=== PATIENT | female | born 1975 | race Caucasian/White ===

== ENCOUNTER 2016-11-30 14:37 | Emergency (ER) | payer OTHER ==
[~2016-11-30] VITALS: Ht 170.2 cm; Wt 72.6 kg
[2016-11-30 14:43] VITALS: BP_SYST 115
--- NOTE | 2016-11-30 14:48 | NUR ---
Pt placed to ER waiting room in stable condition.
--- NOTE | 2016-11-30 15:55 | NUR ---
Patient has been seen and examined by Leni RADER
[2016-11-30] MEDS ORDERED: MAG HYDROX/AL HYDROX/SIMETH 30 ML, LIDOCAINE VISCOUS 2% 15ML (PO) 10 ML, BELLADONNA ALK... PO ONE ×3 (16:00)
[2016-11-30 16:17] LABS: HEMATOCRIT 43.8 % (36-48); HEMOGLOBIN 14.6 g/dL (12.0-16.0); MEAN CORPUSCULAR HEMOGLOBIN 31 pg (27-31); MEAN CORPUSCULAR HGB CONC 33 % (32-36); MEAN CORPUSCULAR VOLUME 93 fL (79.0-98.0); PLATELET COUNT (AUTO) 508 K/uL (130-430); RED BLOOD CELL COUNT(AUTO) 4.74 MIL/uL (4.2-6.2); RED CELL DISTRIBUTION WIDTH 13.5 % (9.0-15.0); WHITE BLOOD COUNT (AUTO) 13.2 K/uL (4.8-10.8)
[2016-11-30 16:24] LABS: BILIRUBIN,URINE NEGATIVE (NEGATIVE); CLARITY/URINE CLEAR (CLEAR); COLOR,URINE YELLOW (YELLOW); GLUCOSE,URINE NEGATIVE (NEGATIVE); KETONES,URINE NEGATIVE (NEGATIVE); LEUKOCYTE ESTERASE ,URINE NEGATIVE (NEGATIVE); NITRITE, URINE NEGATIVE (NEGATIVE); PROTEIN URINE NEGATIVE (NEGATIVE); UROBILINOGEN,URINE 0.2 (0.2-1.0)
[2016-11-30 16:27] LABS: BLOOD, URINE TRACE (NEGATIVE)
[2016-11-30 16:28] LABS: CALCIUM 9.6 mg/dL (8.4-11.0); CREATININE 0.95 mg/dL (0.55-1.30); POTASSIUM 4.2 mmol/L (3.5-5.1)
[2016-11-30 16:32] LABS: ALBUMIN 3.7 g/dL (3.4-4.8); TOTAL BILIRUBIN 0.5 mg/dL (0.0-1.0); TOTAL PROTEIN, SERUM 8.3 g/dL (6.4-8.3)
[2016-11-30 16:40] LABS: BACTERIA,URINE FEW /HPF (None Seen); WBC,URINE 0-3 /HPF (0-3)
[2016-11-30 16:49] LABS: ATYPICAL LYMPHOCYTES % 5 % (0-0); BAND % (MANUAL) 14 % (0-6); BASOPHILS % (MANUAL) 0 % (0-2); EOSINOPHILS % (MANUAL) 0 % (0-7); LYMPHOCYTES % (MANUAL) 12 % (20-46); MONOCYTES % (MANUAL) 2 % (0-11)
--- NOTE | 2016-11-30 18:00 | NUR ---
Patient placed in Hallway chair to await dispo
--- NOTE | 2016-11-30 18:18 | NUR ---
Patient to ED for eval of abd pain/back pain with radiation to left shoulder. Patient c/o pain of 10/10, able to ambulate without difficulty, with slow, steady gait. patient has been seen and evaluated by Leni rocio received
[2016-11-30] MEDS ORDERED: MORPHINE SULFATE 10 MG/ML VIAL IM ONE (18:30)
[2016-11-30] MEDS ORDERED: DIPHENHYDRAMINE INJ 50 MG/ML VIAL IM ONE (18:30)
[2016-11-30] MEDS ORDERED: MAG-AL HYDROX/SIMETH 30 ML UDC ONE (18:32)
[2016-11-30] MEDS ORDERED: LIDOCAINE VISCOUS 2%, 15 ML UDC ONE (18:32)
[2016-11-30] MEDS ORDERED: BELLADONNA ALKALOIDS/PHENOBARB 5 ML UDC ONE (18:33)
--- NOTE | 2016-11-30 19:12 | NUR ---
Patient given written and verbal discharge instructions and verbalizes understanding. ER MD discussed with patient the results and treatment provided. Patient in stable condition. ID arm band removed. Rx of Flagyl/Vicodin given. Patient educated on pain management and to follow up with PMD. Pain Scale 3. Opportunity for questions provided and answered.
== END 2016-11-30 19:10 | disposition home or self-care (01) ==
LOC: SED 14:37
DX: K51.90 Ulcerative colitis, unspecified, without complications (principal); K21.9 Gastro-esophageal reflux disease without esophagitis; E11.9 Type 2 diabetes mellitus without complications
CPT/HCPCS: 36415; 74176; 80053; 81000; 83690; 85007; 85027; 96372; 99285; J1200; J2001; J2270